=== PATIENT | female | born 1945 | race Caucasian/White ===

== ENCOUNTER 2018-07-27 04:42 | Inpatient (IN) | payer MEDICARE, BC ==
[~2018-07-27] VITALS: Ht 160 cm; Wt 73.1 kg
[2018-07-27 05:24] LABS: BASO # 0.1 x10^3/uL (0.0-0.2); BASO % 1 % (0-3); EOS # 0.6 x10^3/uL (0.0-0.7); EOS % 8 % (0-3); HEMATOCRIT 40.6 % (36.0-47.0); HEMOGLOBIN 14.4 g/dL (12.0-15.5); LYMPH # 1.6 x10^3/uL (1.0-4.8); LYMPH % 23 % (24-48); MEAN CORPUSCULAR HEMOGLOBIN 30 pg (25-35); MEAN CORPUSCULAR HGB CONC 36 g/dL (31-37); MEAN CORPUSCULAR VOLUME 85 fL (79-100); MONO # 0.6 x10^3/uL (0.0-1.1); MONO % 9 % (0-9); NEUT # 4.3 x10^3uL (1.8-7.7); NEUT % 59 % (31-73); PLATELET COUNT 159 x10^3/uL (140-400); RED CELL DISTRIBUTION WIDTH 13.1 % (11.5-14.5); WHITE BLOOD COUNT 7.2 x10^3/uL (4.0-11.0)
--- NOTE | 2018-07-27 05:25 | PHYS DOC ---
Past History Past Medical History: GERD, High Cholesterol, Hypertension, Other (SHANTE CURTIS MD) Past Surgical History: Cholecystectomy (SHANTE CURTIS MD) Alcohol Use: Occasionally Drug Use: None (SHANTE CURTIS MD) Adult General Chief Complaint Chief Complaint: CHEST PAIN HPI HPI Patient is a 72 year old female who presents with complaint of chest and back pain. Patient states she awoke with pain at 0300 this morning. States that it is sharp and pressure-like and radiates into her left shoulder. Notes that she tried switching positions while sleeping with no improvement. Took 2 ibuprofen which did not help. Patient then called ask a nurse and was told to call [phone] an d come to the emergency department. She was also instructed to take 4 baby aspirin which she did prior to arrival. Denies history of similar symptoms. Does not history of hyperlipidemia and hypertension. States that she has had a stress test approximately 3 years ago and has not been diagnosed with any known coronary disease. States that she felt short of breath with her symptoms. Denied nausea, fever, or diaphoresis. Currently rates pain as 5 out of 10. (SHANTE CURTIS MD) Review of Systems Review of Systems Constitutional: Denies fever or chills [] Eyes: Denies change in visual acuity, redness, or eye pain [] HENT: Denies nasal congestion or sore throat [] Respiratory: Shortness of breath, denies cough[] Cardiovascular: Chest pain[] GI: Denies abdominal pain, nausea, vomiting, bloody stools or diarrhea [] : Denies dysuria or hematuria [] Musculoskeletal: Back pain[] Integument: Denies rash or skin lesions [] Neurologic: Denies headache, focal weakness or sensory changes [] All other systems were reviewed and found to be within normal limits, except as documented in this note. (SHANTE CURTIS MD) Current Medications Current Medications Current Medications Medications (Trade) Dose Ordered Sig/Jaciel Start Time Stop Time Status Last Admin Dose Admin Nitroglycerin (Nitrostat) 0.4 mg PRN Q5MIN PRN 07/27/18 05:30 07/28/18 05:29 Sodium Chloride 1,000 ml @ 125 mls/hr Q8H 07/27/18 05:16 07/27/18 13:15 UNV (SHANTE CURTIS MD) Allergies Allergies Allergies Coded Allergies Type Severity Reaction Last Updated Verified acetaminophen Allergy Unknown 07/27/18 Yes oxycodone Allergy Unknown 07/27/18 Yes (SHANTE CURTIS MD) Physical Exam Physical Exam Constitutional: Alert, afebrile, appears in mild to moderate discomfort. [] HENT: Normocephalic, atraumatic, bilateral external ears normal, oropharynx moist, no oral exudates, nose normal. [] Eyes: PERRLA, EOMI, conjunctiva normal, no discharge. [] Neck: Normal range of motion, no tenderness, supple, no stridor. [] Cardiovascular:Heart rate regular rhythm, no murmur [] Lungs & Thorax: Bilateral breath sounds clear to auscultation [] Abdomen: Bowel sounds normal, soft, no tenderness, no masses, no pulsatile m asses. [] Skin: Warm, dry, no erythema, no rash. [] Back: No tenderness, no CVA tenderness. [] Extremities: No tenderness, no cyanosis, no clubbing, ROM intact, no edema. [] Neurologic: Alert and oriented X 3, normal motor function, normal sensory function, no focal deficits noted. [] (SHANTE CURTIS MD) Current Patient Data Vital Signs Vital Signs Date Time Temp Pulse Resp B/P (MAP) Pulse Ox O2 Delivery O2 Flow Rate FiO2 07/27/18 04:42 98.3 80 16 163/88 (113) 98 Room Air Lab Results Laboratory Tests Test 07/27/18 04:50 White Blood Count 7.2 x10^3/uL Red Blood Count 4.80 x10^6/uL Hemoglobin 14.4 g/dL Hematocrit 40.6 % Mean Corpuscular Volume 85 fL Mean Corpuscular Hemoglobin 30 pg Mean Corpuscular Hemoglobin Concent 36 g/dL Red Cell Distribution Width 13.1 % Platelet Count 159 x10^3/uL Neutrophils (%) (Auto) 59 % Lymphocytes (%) (Auto) 23 % Monocytes (%) (Auto) 9 % Eosinophils (%) (Auto) 8 % Basophils (%) (Auto) 1 % Neutrophils # (Auto) 4.3 x10^3uL Lymphocytes # (Auto) 1.6 x10^3/uL Monocytes # (Auto) 0.6 x10^3/uL Eosinophils # (Auto) 0.6 x10^3/uL Basophils # (Auto) 0.1 x10^3/uL Sodium Level 142 mmol/L Potassium Level 3.3 mmol/L Chloride Level 104 mmol/L Carbon Dioxide Level 25 mmol/L Anion Gap 13 Blood Urea Nitrogen 13 mg/dL Creatinine 1.1 mg/dL Estimated GFR (Cockcroft-Gault) 49.0 BUN/Creatinine Ratio 12 Glucose Level 142 mg/dL Calcium Level 8.9 mg/dL Magnesium Level 1.9 mg/dL Total Bilirubin 0.6 mg/dL Aspartate Amino Transf (AST/SGOT) 21 U/L Alanine Aminotransferase (ALT/SGPT) 39 U/L Alkaline Phosphatase 86 U/L Creatine Kinase 42 U/L Creatine Kinase MB (Mass) < 0.5 ng/mL Creatine Kinase MB Relative Index 1.2 % Troponin I Quantitative < 0.017 ng/mL FX-Fcg-K-Type Natriuretic Peptide 84 pg/mL Total Protein 7.7 g/dL Albumin 3.5 g/dL Albumin/Globulin Ratio 0.8 Current Medications Medications (Trade) Dose Ordered Sig/Jaciel Route PRN Reason Start Time Stop Time Status Last Admin Dose Admin Nitroglycerin (Nitrostat) 0.4 mg PRN Q5MIN PRN SL CP RATING > 10 07/27/18 05:30 07/28/18 05:29 07/27/18 05:25 Sodium Chloride 1,000 ml @ 125 mls/hr Q8H IV 07/27/18 05:30 07/27/18 13:29 07/27/18 05:25 (SHANTE CURTIS MD) EKG EKG Interpreted by me: Heart rate 76, sinus rhythm, normal intervals, normal axis, no acute ST/T-wave abnormalities present[] (SHANTE CURTIS MD) Radiology/Procedures Radiology/Procedures One view AP chest x-ray interpreted by me: No infiltrates, no effusions, no mediastinal widening[] (SHANTE CURTIS MD) Impressions: CTA of the chest, abdomen and pelvis with contrast, 07/27/2018: HISTORY: Chest, back and shoulder pain Multidetector CT imaging was performed following an IV bolus injection of iodinated contrast material. Multiplanar reconstructions were produced including 3-D volume rendered reconstructions of the aorta and major arteries. The thoracic aorta is of normal caliber. There are pulsation type artifacts related to the proximal ascending aorta. There is no evidence of aortic aneurysm or dissection. There is mild calcific plaquing. There is moderate calcific plaquing involving the abdominal aorta and its branches. No abdominal aortic aneurysm is identified. There is approximately 50 percent diameter narrowing of the celiac artery origin. The superior mesenteric arterial origin is widely patent. There are single bilateral renal arteries with calcific plaquing at their origins. There is only mild associated luminal narrowing. A patent inferior mesenteric artery is present. No significant iliac or common femoral arterial stenosis is identified. There are mild bilateral apical pleural-parenchymal opacities compatible with scarring. There are several calcified granulomata in the right lung as well as right hilar calcifications. A 4 mm noncalcified subpleural pulmonary nodule is noted laterally in the left lower lobe on image 145 of series #4. A slightly smaller peripheral nodule is also noted in the left lower lobe on image 155 of series #4. These nodules appear unchanged since 06/07/2017. They likely represent noncalcified granulomata. No pulmonary consolidation is seen. There is no evidence of pleural fluid. The gallbladder is surgically absent. There is heterogeneous opacification of the spleen likely on a technical basis. The bowel loops are not dilated. No free fluid or free air is evident in the abdomen or pelvis. A right hip prosthesis is in place. There are mild scattered degenerative changes in the spine. IMPRESSION: 1. Moderate calcific plaquing of the abdominal aorta. 2. No evidence of aortic aneurysm or dissection. 3. Stable small left lower lobe pulmonary nodules. PQRS Compliance Statement: One or more of the following individualized dose reduction techniques were utilized for this examination: 1. Automated exposure control 2. Adjustment of the mA and/or kV according to patient size 3. Use of iterative reconstruction technique Electronically signed by: David Royal MD (07/27/2018 7:51 AM) [facility] (ABIODUN ORTIZ DO) Course & Med Decision Making Course & Med Decision Making Pertinent Labs and Imaging studies reviewed. (See chart for details) Blood work reviewed and unremarkable at this time. Given symptoms of pain radiating through back and into left shoulder, I have ordered a CT angiogram to rule out aortic pathology. If this is negative the patient should be admitted to the hospital here for rule out of myocardial infarction. Care of patient signed out to Dr. Ortiz at 0503. (SHANTE CURTIS MD) Course & Med Decision Making The patient's CTA was negative for PE or other acute finding. I discussed the patient with Dr. Moe and he has accepted the patient for admission and chest pain rule out. (ABIODUN ORTIZ DO) Dragon Disclaimer Dragon Disclaimer This electronic medical record was generated, in whole or in part, using a voice recognition dictation system. (SHANTE CURTIS MD) Departure Departure: Impression: Primary Impression: Chest pain Disposition: ADMITTED INPATIENT Admitting Physician: Danny Moe (ABIODUN ORTIZ DO) Condition: STABLE Referrals: MARQUEZ BECKHAM MD (PCP) Problem Qualifiers Primary Impression: Chest pain Chest pain type: unspecified Qualified Codes: R07.9 - Chest pain, unspecified SHANTE CURTIS MD July 27, 2018 05:25 ABIODUN ORTIZ DO July 27, 2018 08:05
[2018-07-27] MEDS ORDERED: NITROGLYCERIN SUBLINGUAL 0.4 MG BOTTLE OF 25. SL PRN ×2 (05:30→09:45)
[2018-07-27] MEDS ORDERED: IV NORMAL SALINE 1,000ML 1,000 ML IV SCH (05:30)
[2018-07-27 05:43] LABS: ALBUMIN 3.5 g/dL (3.4-5.0); ALBUMIN/GLOBULIN RATIO 0.8 (1.0-1.7); ALK PHOS 86 U/L (46-116); ALT (SGPT) 39 U/L (14-59); ANION GAP 13 (6-14); AST (SGOT) 21 U/L (15-37); BLOOD UREA NITROGEN 13 mg/dL (7-20); BUN/CREATININE RATIO 12 (6-20); CALCIUM 8.9 mg/dL (8.5-10.1); CARBON DIOXIDE 25 mmol/L (21-32); CHLORIDE 104 mmol/L (98-107); CREATININE 1.1 mg/dL (0.6-1.0); GLUCOSE 142 mg/dL (70-99); MAGNESIUM 1.9 mg/dL (1.8-2.4); POTASSIUM 3.3 mmol/L (3.5-5.1); SODIUM 142 mmol/L (136-145); TOTAL BILIRUBIN 0.6 mg/dL (0.2-1.0); TOTAL PROTEIN 7.7 g/dL (6.4-8.2)
[2018-07-27] MEDS ORDERED: CONTRAST GIVEN MC PRN ×2 (06:15→07:00)
[2018-07-27] MEDS ORDERED: IOHEXOL 350 MG/ML 100 ML VIAL. IV ONE (06:15)
--- NOTE | 2018-07-27 07:54 | RAD ---
CTA of the chest, abdomen and pelvis with contrast, 07/27/2018: HISTORY: Chest, back and shoulder pain Multidetector CT imaging was performed following an IV bolus injection of iodinated contrast material. Multiplanar reconstructions were produced including 3-D volume rendered reconstructions of the aorta and major arteries. The thoracic aorta is of normal caliber. There are pulsation type artifacts related to the proximal ascending aorta. There is no evidence of aortic aneurysm or dissection. There is mild calcific plaquing. There is moderate calcific plaquing involving the abdominal aorta and its branches. No abdominal aortic aneurysm is identified. There is approximately 50 percent diameter narrowing of the celiac artery origin. The superior mesenteric arterial origin is widely patent. There are single bilateral renal arteries with calcific plaquing at their origins. There is only mild associated luminal narrowing. A patent inferior mesenteric artery is present. No significant iliac or common femoral arterial stenosis is identified. There are mild bilateral apical pleural-parenchymal opacities compatible with scarring. There are several calcified granulomata in the right lung as well as right hilar calcifications. A 4 mm noncalcified subpleural pulmonary nodule is noted laterally in the left lower lobe on image 145 of series #4. A slightly smaller peripheral nodule is also noted in the left lower lobe on image 155 of series #4. These nodules appear unchanged since 06/07/2017. They likely represent noncalcified granulomata. No pulmonary consolidation is seen. There is no evidence of pleural fluid. The gallbladder is surgically absent. There is heterogeneous opacification of the spleen likely on a technical basis. The bowel loops are not dilated. No free fluid or free air is evident in the abdomen or pelvis. A right hip prosthesis is in place. There are mild scattered degenerative changes in the spine. IMPRESSION: 1. Moderate calcific plaquing of the abdominal aorta. 2. No evidence of aortic aneurysm or dissection. 3. Stable small left lower lobe pulmonary nodules. PQRS Compliance Statement: One or more of the following individualized dose reduction techniques were utilized for this examination: 1. Automated exposure control 2. Adjustment of the mA and/or kV according to patient size 3. Use of iterative reconstruction technique Electronically signed by: David Royal MD (07/27/2018 7:51 AM) [facility]
--- NOTE | 2018-07-27 07:59 | RAD ---
PORTABLE CHEST 1V History: Chest and back pain radiating to the left shoulder Comparison: None. Findings: Single view of the chest is submitted. There is no infiltrate, pneumothorax, or effusion. The pericardial cardiac silhouette is within normal limits in size. There is some atherosclerotic calcification near aortic arch. Impression: 1. There is no radiographic evidence of acute cardiopulmonary disease. Electronically signed by: Robin Mcgowan MD (07/27/2018 7:56 AM) [facility]
--- NOTE | 2018-07-27 10:37 | EKG ---
[address] [address] Test Date: 2018-07-27 Test Time: 04:55:17 Pat Name: MARQUEZ PRECIADO Department: Room: Gender: F Assistant [employer] Professional: : 1945 Requested By: SHANTE CURTIS Order Number: [id number] Reading MD: Measurements Intervals Baxter Rate: 76 P: 40 NC: 158 QRS: 26 QRSD: 86 T: 8 QT: 374 QTc: 425 Interpretive Statements SINUS RHYTHM NORMAL ECG RI6.01 No previous ECG available for comparison
[2018-07-27 11:44] VITALS: BP 144/74
[2018-07-27] MEDS ORDERED: POTASSIUM CHLORIDE 20 MEQ TABLET.ER. PO ONE (12:00)
[2018-07-27] MEDS ORDERED: CHOL500016 PO (13:04)
[2018-07-27] MEDS ORDERED: PRAV40TA2 PO (13:04)
[2018-07-27] MEDS ORDERED: LACT1CAP56 PO (13:04)
[2018-07-27] MEDS ORDERED: OXYB10TA PO (13:04)
[2018-07-27] MEDS ORDERED: CYAN10005 PO (13:04)
[2018-07-27] MEDS ORDERED: LOSA1TAB25 PO (13:04)
[2018-07-27] MEDS ORDERED: ESTR42.53 VG (13:04)
[2018-07-27] MEDS ORDERED: METO-239 PO (13:04)
[2018-07-27] MEDS ORDERED: PSYL0.527 PO (13:04)
[2018-07-27] MEDS ORDERED: ASPI-612 PO (13:04)
[2018-07-27] MEDS ORDERED: PROG200C15 PO (13:04)
[2018-07-27] MEDS ORDERED: MV-M1TAB54 PO (13:04)
[2018-07-27] MEDS ORDERED: OMEG-33 PO (13:04)
--- NOTE | 2018-07-27 13:20 | NUR ---
The patient, MARQUEZ PRECIADO, 72 y/o, F admitted by STEPHON RAYMOND MD, was given written information regarding hospital policies, unit procedures and contact persons. Valuables were checked and were left with patient at bedside. Patient is a DNR, TELE, patient of Dr. Raymond's. Patient was admitted from [facility] ED to [facility] for chest pain, chest pressure that patient reports started at 0300 this morning. Patient stated she took 4 aspirin and then decided to come to ED due to chest pain and back pressure not residing. Patient rated it a 8 on a scale of 1-10. Patient was given 1 nitro in ED, CT angio was negative. Patient has a 20 G in Left wrist and a 20 G in RAC running NS at 125ML/HR. Patient's first set of troponin that was done in ED was negative. Patient has a medical history of Right total hip replacement in 2014, cervical polyp removal 2008, HLD, HTN, Choley 04/2018, Sleep apnea, history of Type 2 Diabetes which is diet controlled, Synchrony lens placed BL eyes in 2016, urinary urgency. Patient ambulates independently, continent of bowel and bladder, has upper and lower dentures. Patient is alert and oriented x 4, speech is clear, able to make wants and needs known and able to verbalize understanding of others. Patient is on a Cardiac diet. Lungs are CTA, respirations are even and unlabored with no cough and no c/o of SOB at this time, HRR s1s2 auscultated, Sinus Lawrence rhythm, Abdomen is soft and non tender will active bowel sounds in all 4 quadrants, last BM on 07/26/18. Skin is in tact, skin color is appropriate for race, skin turgor is appropriate for age. Dr. Raymond was notified at 1130 via telephone of patient admission with new orders in place. Patient is resting in room with call light and fresh fluids with in reach.
[2018-07-27 15:37] VITALS: BP 121/72
[2018-07-27] MEDS ORDERED: PROGESTERONE MICRONIZED 200 MG PO SCH (16:00)
[2018-07-27] MEDS ORDERED: ASPIRIN ENTERIC COATED 81 MG TABLET.DR. PO SCH (17:00)
[2018-07-27] MEDS ORDERED: OXYBUTYNIN CHLORIDE 5 MG TABLET PO SCH (17:00)
--- NOTE | 2018-07-27 18:02 | CARD ---
MR#: [id number] Date of Study: 07/27/2018 Ordering Physician: HALEIGH BUSH, Referring Physician: STEPHON RAYMOND, Tech: Crystal Lazo APPROVED REPORT EXAM: Two-dimensional and M-mode echocardiogram with Doppler and color Doppler. Other Information Quality : Good INDICATION Chest Pain 2D DIMENSIONS RVDd2.2 (2.9-3.5cm)Left Atrium(2D)3.8 (1.6-4.0cm) IVSd0.9 (0.7-1.1cm)Aortic Root(2D)2.7 (2.0-3.7cm) LVDd5.2 (3.9-5.9cm)LVOT Diameter2.1 (1.8-2.4cm) PWd0.9 (0.7-1.1cm)LVDs2.9 (2.5-4.0cm) FS (%) 44.1 %SV96.0 ml LVEF(%)75.1 (>50%) Aortic Valve AoV Peak Abner.148.1cm/sAoV VTI37.4cm AO Peak GR.8.8mmHgLVOT Peak Abner.106.1cm/s LVOT VTI 25.75cmAO Mean GR.6mmHg KAYLA (VMAX)2.46dv4PLK (VTI)2.47cm2 Mitral Valve MV E Ifwxiden013.4cm/sMV DECEL LPXQ805gq MV A Ulvpzfso029.9cm/sE/A Ratio1.1 Pulmonary Valve PV Peak Lnjdofdj24.3cm/sPV Peak Grad.3mmHg Tricuspid Valve TR P. Atuoooto988xs/sRAP QKZSYNGG9omXm TR Peak Gr.17jkUeISHY08fcGx Pulmonary Vein S1 Wgyxuxbg19.9cm/sD2 Kzloksxv89.8cm/s LEFT VENTRICLE The left ventricle is normal size. There is normal left ventricular wall thickness. The left ventricu lar systolic function is normal and the ejection fraction is within normal range. The Ejection Fracti on is >55%. There is normal LV segmental wall motion. Transmitral Doppler flow pattern is Grade II-ps eudonormal filling dynamics. RIGHT VENTRICLE The right ventricle is normal size. There is normal right ventricular wall thickness. The right ventr icular systolic function is normal. ATRIA The left atrium size is normal. The right atrium size is normal. The interatrial septum is intact wit h no evidence for an atrial septal defect or patent foramen ovale as noted on 2-D or Doppler imaging. AORTIC VALVE The aortic valve is normal in structure and function. Doppler and Color Flow revealed trace aortic re gurgitation. There is no significant aortic valvular stenosis. MITRAL VALVE The mitral valve is normal in structure and function. There is no evidence of mitral valve prolapse. There is no mitral valve stenosis. Doppler and Color-flow revealed trace to mild mitral regurgitation . TRICUSPID VALVE The tricuspid valve is normal in structure and function. Doppler and Color Flow revealed trace tricus pid regurgitation with an estiimated PAP of 28 mmHg. There is no tricuspid valve stenosis. PULMONIC VALVE Doppler and Color Flow revealed trace pulmonic valvular regurgitation. There is no pulmonic valvular stenosis. GREAT VESSELS The aortic root is normal in size. The IVC is normal in size and collapses >50% with inspiration. PERICARDIAL EFFUSION There is no evidence of significant pericardial effusion. Critical Notification Critical Value: No <Conclusion> The left ventricular systolic function is normal and the ejection fraction is within normal range. Th e Ejection Fraction is >55%. There is normal LV segmental wall motion. Doppler and Color-flow revealed trace to mild mitral regurgitation. Signed by : Kristopher Robertson, Electronically Approved : 07/27/2018 18:01:32
--- NOTE | 2018-07-27 19:46 | PN ---
DATE: 07/27/2018 HISTORY OF PRESENT ILLNESS: The patient is a 72-year-old female patient who came to the Emergency Room as she woke up at nighttime around 3:00 in the morning complaining of severe back pain that mostly in the left side that she describes as pressure and that radiates to the left shoulder. She tried switching positions while asleep without improvement. She took two ibuprofens, which did not help. She called, asked a nurse and she was told to #[phone] and come to the Emergency Room. She instead called her son after taking 4 baby aspirin and she did have some episodes of nausea, but no vomiting. She was short of breath, but denied any diaphoresis. The whole episode lasted about an hour. She said she was given nitroglycerin sublingually, but did not feel any headache and her pain has subsided, although it's not completely resolved by the time I saw her. She was evaluated in the Emergency Room, has had an EKG, which showed that she was in sinus rhythm with a heart rate of [address]-T changes. Her chest x-ray was unremarkable with no infiltrate, effusion or mediastinal widening. CT angio of the chest, abdomen and pelvis with contrast showed moderate calcific plaquing of the abdominal aorta, no evidence of aortic aneurysm or dissection, stable small left lower lobe pulmonary nodules. Her first set of cardiac enzyme was less than 0.017 and therefore, the patient was admitted to do 2 more sets of cardiac enzymes, check fasting lipid profile and consult the cardiology team. The patient stated that she has never had any symptoms like this before. She was evaluated before her cervical polyp was removed by Dr. Wolfe and had a stress test, which was apparently negative. PAST MEDICAL HISTORY: Her past medical history is significant for hypertension, hyperlipidemia, obstructive sleep apnea, chronic diastolic congestive heart failure. PAST SURGICAL HISTORY: Past surgical history is significant for cholecystectomy, esophagogastroduodenoscopy and colonoscopy, right total hip arthroplasty and bilateral cataract extraction. ALLERGIES: She is INTOLERANT TO PERCOCET. MEDICATIONS: She is currently on following medications: She is on pravastatin sodium 40 mg at bedtime, omega-3 fatty acid, Fish Oil 1000 soft gel twice a day, metoprolol succinate 25 mg once a day, losartan/hydrochlorothiazide 100/12.5 mg once a day, aspirin 81 mg once a day, Psyllium Husks 0.52 grams p.o. b.i.d., lactobacillus 1 daily, estradiol for Estrace 2 grams vaginally daily, progesterone micronized 200 mg p.o. daily, oxybutynin chloride 10 mg daily. She is on cyanocobalamin 1000 mcg tablet 2500 mcg once a day, multivitamin 1 tablet once a day, cholecalciferol for vitamin D3 5000 international units once a day. FAMILY HISTORY: She has 2 brothers and 1 sister, younger and healthy. Her mother is still alive at age of 92 and has Alzheimer's disease. Her father at age of 83 because of underwent a bioprosthetic valve replacement as well as pacemaker. SOCIAL HISTORY: She lives alone with her dog. She has 2 sons and 4 daughters. She quit smoking in 1997. She drinks alcohol occasionally. 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 REVIEW OF SYSTEMS: The patient denied any blurring of vision, cataract, glaucoma or macular degeneration. Denied any earache, tinnitus or sensorineural deafness. Denied any nosebleeds, stuffy nose or postnasal drip. Denied any sore throat, sore tongue, toothache, hoarseness of voice or difficulty swallowing. Denied any nausea, vomiting, diarrhea or constipation. Denied any hematemesis, melena or hematochezia. Denied any dysuria, frequency or hematuria. Did complain of left-sided chest pressure and did have some nausea, but no vomiting. Did complain of shortness of breath, but denied any diaphoresis. Denied any dizziness, lightheadedness or vertigo. PHYSICAL EXAMINATION: GENERAL: When I examined her, she looked well and was clearly in no apparent respiratory distress and slightly pale, but no jaundice, cyanosis, or thyromegaly. No jugular venous distension. No lower limb edema. VITAL SIGNS: Her heart rate was 68, blood pressure was 148/74. Her temperature was 98.3, respiratory rate was 16 and oxygen saturation was 98% on room air. HEENT: Examination of the head, eyes, ears, nose and throat showed normocephalic, atraumatic. NECK: Supple. HEART: Showed normal first and second heart sounds with no gallop, rub or murmur. CHEST: Clear to auscultation. No crepitation or rhonchi. ABDOMEN: Distended, soft, nontender. No guarding or rigidity. No organomegaly. All hernial orifices are intact. Bowel sounds normal. NEUROLOGIC: She was awake, alert, responding appropriately. All her cranial nerves are intact. EXTREMITIES: She moves extremities without difficulty. She ambulates without assistance or assistive devices. LABORATORY DATA: Her lab work showed a serum sodium 142, potassium 3.3, chloride 104, bicarbonate 25, anion gap of 13, BUN 13, creatinine 1.1, estimated GFR was 49 mL per minute. Her glucose 142, calcium was 8.9, magnesium was 1.9. Total bilirubin, AST, ALT, alkaline phosphatase were normal. Her total protein was 7.7, albumin was 3.5. Her white cell count was 7200, hemoglobin 14, hematocrit 40, MCV 85 and platelet count of 159,000. ASSESSMENT: So, in summary, this is a 72-year-old female patient who was awakened of this pain in her left side of the chest radiating to the left shoulder associated with shortness of breath, nausea, but no vomiting, no diaphoresis. There is no tenderness anteriorly or posteriorly on the left side of the chest. Her EKG showed that she was in normal sinus rhythm with no ST segment elevation or depression. Her first set of cardiac enzyme was normal. Her CT scan of the chest, abdomen and pelvis showed no evidence of aortic dissection. PLAN: Plan is to do 2 more sets of cardiac enzymes, check her fasting lipid profile, consult the production broacher. We will continue all her medications for now. STEPHON RAYMOND MD DR: TATI/mishel JOB#: [id number] / [id number]
[2018-07-27] MEDS ORDERED: ATORVASTATIN CALCIUM 10 MG TABLET. PO SCH (21:00)
[2018-07-27] MEDS ORDERED: LACTOBACILLUS RHAMNOSUS GG 1 CAPSULE. PO SCH (21:00)
[2018-07-27] MEDS ORDERED: OMEGA-3 FATTY ACIDS/FISH OIL 1,000 MG CAPSULE. PO SCH (21:00)
--- NOTE | 2018-07-28 01:57 | DS ---
DATE OF DISCHARGE: 07/27/2018 HOSPITAL COURSE: The patient is a 72-year-old female patient, who came to the Emergency Room complaining of severe chest discomfort described as heavy weight on her left chest radiating to her left shoulder. She had some nausea, but no vomiting. Did complain of shortness of breath. The whole episode lasted for more than an hour. She took 4 baby aspirin and one sublingual nitroglycerin that did not really alleviated the pain. She was evaluated in the Emergency Room and was extensively investigated. She has 3 sets of cardiac enzymes that were all negative with a troponin less than 0.017. Given the nature of her complaints, possibility of dissection was entertained and she will underwent CT scan of the chest, abdomen and pelvis with IV contrast, which only showed that the patient has moderate calcific plaquing of the abdominal aorta. No evidence of aortic aneurysm or dissection. She has small stable left lower lobe pulmonary nodule. Her lipid profile showed that her serum triglycerides were 96, total cholesterol 155, LDL cholesterol was 85, VLDL was 19, and HDL cholesterol was 51. The ratio of 3. She was seen by the Cardiology team and their recommendation was for her to be discharged home, to follow up with their on office Monday for outpatient stress testing. PHYSICAL EXAMINATION: GENERAL: When I saw her this afternoon, she looked well and was clearly in no apparent respiratory distress, slightly pale, but no jaundice, cyanosis or thyromegaly. No jugular venous distention. No lower limb edema. VITAL SIGNS: Her heart rate was 64, blood pressure was 121/72, temperature was 97.9, respiratory rate was 20, and oxygen saturation was 98% on room air. The rest of clinical examination is stable. DISCHARGE MEDICATIONS: She was discharged to continue on aspirin 81 mg once a day, vitamin D3 5000 international units once a day, cyanocobalamin 2500 mcg p.o. daily, estradiol ____ daily, lactobacillus 1 capsule daily, losartan/hydrochlorothiazide 100/12.5 mg once a day, metoprolol succinate 25 mg once a day, multivitamin with mineral 1 tablet once a day, omega-3 fatty acid 1000 twice a day, oxybutynin chloride 10 mg 3 times a day, pravastatin sodium 40 mg at bedtime, progesterone 200 mg daily, psyllium husk fiber 520 mg daily. FINAL DISCHARGE DIAGNOSES: Atypical chest pain, myocardial infarction was ruled out. The patient is known to have hypertension, hyperlipidemia, gastroesophageal reflux. STEPHON RAYMOND MD DR: TATI/mishel JOB#: [id number] / [id number]
[2018-07-28] MEDS ORDERED: CYANOCOBALAMIN (VITAMIN B-12) 1,000 MCG TABLET. PO SCH (09:00)
[2018-07-28] MEDS ORDERED: MULTIVITAMIN with MINERAL TABLET. PO SCH (09:00)
[2018-07-28] MEDS ORDERED: LOSARTAN 50 MG TABLET. PO SCH (09:00)
[2018-07-28] MEDS ORDERED: CHOLECALCIFEROL (VITAMIN D3) 1,000 UNIT TABLET PO SCH (09:00)
[2018-07-28] MEDS ORDERED: hydroCHLOROthiazide 12.5 MG CAPSULE PO SCH (09:00)
[2018-07-28] MEDS ORDERED: METOPROLOL SUCC 24HR ER 25 MG TAB.ER.24H. PO SCH (09:00)
[2018-07-28] MEDS ORDERED: PSYLLIUM SEED (WITH SUGAR) PACKET. PO SCH (09:00)
[2018-07-28] MEDS ORDERED: ESTRADIOL 0.01% VAGINAL CREAM 42.5GM TUBE. VG SCH (09:00)
--- NOTE | 2018-07-28 12:51 | PDOC2 ---
CONSULT Date of Admission DATE: 07/27/18 TIME: 18:20 Reason for Consult: Chest pain Referring Physician: Dr. Moe Chief Complaint Chest pain Source: Chart review, Patient Problem List Problems Medical Problems: (1) Chest pain Status: Acute History of Present Illness Patient is a 72-year-old female who presented to the emergency room for episodes of somewhat atypical chest discomfort. She does have a history of hypertension and hyperlipidemia but has no documented history of coronary disease or congestive heart failure. Her initial EKG showed a sinus rhythm with no ischemic changes. He has had 2 sets of normal enzymes. Echocardiogram shows normal LV s ystolic function and mild mitral regurgitation. She remained pain-free overnight. Today she reports feeling quite well. She denies chest pain or shortness of breath. She wishes to go home. Cardiovascular: HTN, hyperipidemia GI: GERD Past Surgical History: Cholecystectomy, Cataract Removal, Total hip replacement Family History: Heart Disease Smoke: No ALCOHOL: rare Current Medications Current Medications Nitroglycerin (Nitrostat) 0.4 mg PRN Q5MIN PRN SL CP RATING > 1/10 Last administered on 07/27/18at 05:25; Start 07/27/18 at 05:30; Stop 07/27/18 at 09:45; Status DC Sodium Chloride 1,000 ml @ 125 mls/hr Q8H IV Last administered on 07/27/18at 05:25; Start 07/27/18 at 05:30; Stop 07/27/18 at 13:29; Status DC Iohexol (Omnipaque 350 Mg/ml) 90 ml 1X ONCE IV Last administered on 07/27/18at 06:54; Start 07/27/18 at 06:15; Stop 07/27/18 at 06:16; Status DC Info (Do NOT chart on this entry -- for MONITORING) 1 each PRN DAILY PRN MC SEE COMMENTS; Start 07/27/18 at 06:15; Stop 07/27/18 at 18:41; Status DC Nitroglycerin (Nitrostat) 0.4 mg PRN Q5MIN PRN SL CHEST PAIN; Start 07/27/18 at 09:45; Stop 07/27/18 at 18:41; Status DC Info (Do NOT chart on this entry -- for MONITORING) 1 each PRN DAILY PRN MC SEE COMMENTS; Start 07/27/18 at 07:00; Stop 07/27/18 at 18:41; Status DC Potassium Chloride (Klor-Con) 40 meq 1X ONCE PO Last administered on 07/27/18at 12:32; Start 07/27/18 at 12:00; Stop 07/27/18 at 12:01; Status DC Cyanocobalamin (Vitamin B-12) 2,500 mcg DAILY PO ; Start 07/28/18 at 09:00; Stop 07/28/18 at 09:00; Status DC Estradiol (Estrace) 1 sam DAILY VG ; Start 07/28/18 at 09:00; Stop 07/28/18 at 09:00; Status DC Metoprolol Succinate (Toprol Xl) 25 mg DAILY PO ; Start 07/28/18 at 09:00; Stop 07/28/18 at 09:00; Status DC Aspirin (Aspirin Enteric Coated) 81 mg DAILYWSUP PO ; Start 07/27/18 at 17:00; Stop 07/27/18 at 18:41; Status DC Vitamin D (Vitamin D3) 5,000 unit DAILY PO ; Start 07/28/18 at 09:00; Stop 07/28/18 at 09:00; Status DC Lactobacillus Rhamnosus (Culturelle) 1 cap BID PO ; Start 07/27/18 at 21:00; Stop 07/27/18 at 21:00; Status DC Losartan Potassium (Cozaar) 100 mg DAILY PO ; Start 07/28/18 at 09:00; Stop 07/28/18 at 09:00; Status DC Multivitamins/ Calcium (Thera-M Plus) 1 tab DAILY PO ; Start 07/28/18 at 09:00; Stop 07/28/18 at 09:00; Status DC Fish Oil (Fish Oil) 1,000 mg BID PO ; Start 07/27/18 at 21:00; Stop 07/27/18 at 21:00; Status DC Oxybutynin Chloride (Ditropan) 5 mg BIDWMEALS PO ; Start 07/27/18 at 17:00; Stop 07/27/18 at 18:41; Status DC Atorvastatin Calcium (Lipitor) 10 mg QHS PO ; Start 07/27/18 at 21:00; Stop 07/27/18 at 21:00; Status DC Non-Formulary Medication (Progesterone,Micronized (Prometrium)) 200 mg DAILY16 PO ; Start 07/27/18 at 16:00; Stop 07/27/18 at 18:41; Status DC Psyllium Hydrophilic Mucilloid (Metamucil) 1 pkt BID92 PO ; Start 07/28/18 at 09:00; Stop 07/28/18 at 09:00; Status DC Hydrochlorothiazide (Microzide) 12.5 mg DAILY PO ; Start 07/28/18 at 09:00; Stop 07/28/18 at 09:00; Status DC Active Scripts Active Reported Estrace (Estradiol) 42.5 Gm Cream.appl 2 Gm VG DAILY RESTART TOMORROW AM Prometrium (Progesterone,Micronized) 200 Mg Capsule 200 Mg PO DAILY16 RESTART TOMORROW AFTERNOON Kennedy 3 1,000 Mg Softgel (Kennedy-3 Fatty Acids/Fish Oil) 1 Each Capsule 1 Each PO BID RESTART TONITE AT BEDTIME Fiber (Psyllium Husk) 0.52 Gm Capsule 0.52 Gm PO BID92 RESTART TOMORROW AM Aspirin Ec (Aspirin) 81 Mg Tablet.dr 1 Tab PO DAILYWSUP DUE TOMORROW WITH SUPPER Oxybutynin Chloride Er (Oxybutynin Chloride) 10 Mg Tab.er.24 1 Tab PO DAILYWSUP RESTART TOMORROW WITH SUPPER Pravastatin Sodium 40 Mg Tablet 1 Tab PO QHS RESTART TONITE AT BEDTIME Probiotic-10 10 Bill Cell Cap (Lactobacill 46/B.animal/Inulin) 1 Each Capsule 1 Each PO DAILY RESTART TOMORROW AM Vitamin B-12 (Cyanocobalamin (Vitamin B-12)) 1,000 Mcg Tablet 2,500 Mcg PO DAILY RESTART TOMORROW AM Vitamin D3 (Cholecalciferol (Vitamin D3)) 5,000 Unit Tablet 1 Tab PO DAILY RESTART TOMORROW AM Women's 50 Plus Multivit Tab (Mv-Mn/Folic Acid/Calcium/Vit K) 1 Each Tablet 1 Each PO DAILY RESTART TOMORROW AM Metoprolol Succinate ( Xl ) (Metoprolol Succinate) 25 Mg Tab.er.24h 1 Tab PO DAILY RESTART TOMORROW AM Losartan-Hctz 100-12.5 Mg Tab (Losartan/Hydrochlorothiazide) 1 Each Tablet 1 Tab PO DAILY RESTART TOMORROW AM Allergies: Coded Allergies: acetaminophen (Verified Allergy, Unknown, 07/27/18) oxycodone (Verified Allergy, Unknown, 07/27/18) Cardiovascular: yes: Chest Pain General: No acute distress HEENT: Atraumatic Lungs: Clear to auscultation Heart: Regular rate Abdomen: Normal bowel sounds VITALS Vital Signs Date Time Temp Pulse Resp B/P (MAP) Pulse Ox O2 Delivery O2 Flow Rate FiO2 07/27/18 15:37 97.9 64 20 121/72 (88) 98 Room Air Labs Laboratory Tests Test 07/27/18 04:50 07/27/18 12:28 07/27/18 15:55 White Blood Count 7.2 x10^3/uL (4.0-11.0) Red Blood Count 4.80 x10^6/uL (3.50-5.40) Hemoglobin 14.4 g/dL (12.0-15.5) Hematocrit 40.6 % (36.0-47.0) Mean Corpuscular Volume 85 fL (79-100) Mean Corpuscular Hemoglobin 30 pg (25-35) Mean Corpuscular Hemoglobin Concent 36 g/dL (31-37) Red Cell Distribution Width 13.1 % (11.5-14.5) Platelet Count 159 x10^3/uL (140-400) Neutrophils (%) (Auto) 59 % (31-73) Lymphocytes (%) (Auto) 23 % (24-48) Monocytes (%) (Auto) 9 % (0-9) Eosinophils (%) (Auto) 8 % (0-3) Basophils (%) (Auto) 1 % (0-3) Neutrophils # (Auto) 4.3 x10^3uL (1.8-7.7) Lymphocytes # (Auto) 1.6 x10^3/uL (1.0-4.8) Monocytes # (Auto) 0.6 x10^3/uL (0.0-1.1) Eosinophils # (Auto) 0.6 x10^3/uL (0.0-0.7) Basophils # (Auto) 0.1 x10^3/uL (0.0-0.2) Sodium Level 142 mmol/L (136-145) Potassium Level 3.3 mmol/L (3.5-5.1) Chloride Level 104 mmol/L (98-107) Carbon Dioxide Level 25 mmol/L (21-32) Anion Gap 13 (6-14) Blood Urea Nitrogen 13 mg/dL (7-20) Creatinine 1.1 mg/dL (0.6-1.0) Estimated GFR (Cockcroft-Gault) 49.0 BUN/Creatinine Ratio 12 (6-20) Glucose Level 142 mg/dL (70-99) Calcium Level 8.9 mg/dL (8.5-10.1) Magnesium Level 1.9 mg/dL (1.8-2.4) Total Bilirubin 0.6 mg/dL (0.2-1.0) Aspartate Amino Transf (AST/SGOT) 21 U/L (15-37) Alanine Aminotransferase (ALT/SGPT) 39 U/L (14-59) Alkaline Phosphatase 86 U/L (46-116) Creatine Kinase 42 U/L (26-192) Creatine Kinase MB (Mass) < 0.5 ng/mL (0.0-3.6) Creatine Kinase MB Relative Index 1.2 % (0-4) JQ-Reh-Q-Type Natriuretic Peptide 84 pg/mL (0-124) Total Protein 7.7 g/dL (6.4-8.2) Albumin 3.5 g/dL (3.4-5.0) Albumin/Globulin Ratio 0.8 (1.0-1.7) Triglycerides Level 96 mg/dL (0-150) Cholesterol Level 155 mg/dL (0-200) LDL Cholesterol, Calculated 85 mg/dL (0-100) VLDL Cholesterol, Calculated 19 mg/dL (0-40) Non-HDL Cholesterol Calculated 104 mg/dL (0-129) HDL Cholesterol 51 mg/dL (40-60) Cholesterol/HDL Ratio 3.0 Troponin I Quantitative < 0.017 ng/mL (0-0.055) < 0.017 ng/mL (0-0.055) Images CT scan of the chest, abdomen and pelvis shows a calcified plaque in the abdominal aorta with no evidence of dissection. Assessment/Plan 1. Chest pain. Pain has resolved. EKG shows no ischemic changes. Troponins have been normal. Echocardiogram shows normal LV function. The patient reports feeling well. After discussion with the patient I believe it would be reasonable to allow her to be discharged today. We will follow-up next week with an outpatient stress test. 2. Hypertension. Blood pressures under reasonable control. Continue present treatment. 3. Hyperlipidemia. Continue statin. 4. History of gastroesophageal reflux disease. Continue present treatments. Thank you for allowing us to participate in the care of your patient. HALEIGH BUSH MD Jul 28, 2018 12:51
== END 2018-07-27 18:41 | disposition home or self-care (01) | DRG 313 ==
LOC: ER 04:42 → 1 SOUTH 09:27
PROVIDERS: ADMIT Internal Medicine; ATTEND Internal Medicine
DX: R07.89 Other chest pain (principal); I50.32 Chronic diastolic (congestive) heart failure; E78.00 Pure hypercholesterolemia, unspecified; E78.5 Hyperlipidemia, unspecified; G47.33 Obstructive sleep apnea (adult) (pediatric); I11.0 Hypertensive heart disease with heart failure; Z96.641 Presence of right artificial hip joint; K21.9 Gastro-esophageal reflux disease without esophagitis; N84.1 Polyp of cervix uteri; Z82.0 Family history of epilepsy and other diseases of the nervous system; Z87.891 Personal history of nicotine dependence; Z98.41 Cataract extraction status, right eye; Z98.42 Cataract extraction status, left eye; Z90.49 Acquired absence of other specified parts of digestive tract; Z88.8 Allergy status to other drugs, medicaments and biological substances
CPT/HCPCS: 36415; 71045; 71275; 74174; 80053; 80061; 82553; 83735; 83880; 84484; 85025; 93005; 93306; 96360; 96361; Q9967; 99285-25; J7030

== ENCOUNTER → 2019-11-25 | Outpatient (CLI) | payer MEDICARE, BC ==
[~2019-11-25] MED LIST: ASPI-889 PO; CHOL500016 PO; CYAN-25 PO; ESTR42.53 VG; LACT1CAP56 PO; LOSA1TAB25 PO; METO-239 PO; MV-M1TAB54 PO; OMEG-33 PO; OXYB10TA26 PO; PRAV40TA2 PO; PROG200C15 PO; PSYL0.527 PO
--- NOTE | 2019-11-25 18:00 | RAD ---
Examination: Limited right breast ultrasound INDICATION: Screening recall for mass in the posterior upper outer right breast. COMPARISON: Screening mammogram of 11/19/2019 TECHNIQUE: Grayscale and color Doppler imaging of the upper outer right breast as well as the subareolar breast and right axilla was performed. FINDINGS: A deep intramammary lymph node measuring 8 mm at the 11:00 position 10 cm from the nipple correlates in size and shape with the mammographic finding recalled from screening. The right breast ultrasound is otherwise notable for an incidental subareolar ectatic duct measuring 2.3 mm. No adenopathy in the right axilla. IMPRESSION: Benign intramammary lymph node in the upper outer right breast. No evidence of malignancy. Recommend return to routine screening next due in one year. BI-RADS Category 2 Benign Electronically signed by: Christina Loo MD (11/25/2019 5:57 PM) [id number]
== END | disposition home or self-care (01) ==
LOC: US 14:40
PROVIDERS: ATTEND Family Medicine
DX: R92.8 Other abnormal and inconclusive findings on diagnostic imaging of breast (principal); N63.11 Unspecified lump in the right breast, upper outer quadrant
CPT/HCPCS: 76641